=== PATIENT | female | born 1935 | race African-American/Black ===

== ENCOUNTER 2016-06-16 16:31 | Emergency (ER) | payer MEDICARE ==
[~2016-06-16] VITALS: Ht 167.6 cm; Wt 91.0 kg
[2016-06-16 17:15] VITALS: BP 141/80
[2016-06-16] MEDS ORDERED: MELO-58 PO (17:21)
[2016-06-16] MEDS ORDERED: OLME20TA14 PO (17:21)
== END 2016-06-16 23:00 | disposition home or self-care (01) ==
LOC: ER 21:12
DX: S00.33XA Contusion of nose, initial encounter (principal); I10 Essential (primary) hypertension; M19.90 Unspecified osteoarthritis, unspecified site; Z98.890 Other specified postprocedural states; Z90.710 Acquired absence of both cervix and uterus; W22.03XA Walked into furniture, initial encounter; Y93.89 Activity, other specified; Y92.018 Other place in single-family (private) house as the place of occurrence of the external cause
CPT/HCPCS: 70450; 70486; 99284